=== PATIENT | female | born 1995 | race Caucasian/White ===

== ENCOUNTER 2023-11-29 14:41 | Emergency (ER) | payer SELFPAY ==
[~2023-11-29] VITALS: Ht 170.2 cm; Wt 73.0 kg
[2023-11-29 14:50] VITALS: O2SAT 98
[2023-11-29 16:39] LABS: BASOPHILS % 1.2 % (0.0-2.0); EOSINOPHILS % 1.9 % (0.0-5.0); HEMATOCRIT. 41.2 % (36.0-48.0); HEMOGLOBIN. 13.5 g/dL (12.0-16.0); LYMPHOCYTES % 39.5 % (20.0-50.0); MEAN CORPUSCULAR HEMOGLOBIN 27.6 pg (28.0-32.0); MEAN CORPUSCULAR HGB CONC 32.8 g/dL (31.0-37.0); MEAN CORPUSCULAR VOLUME 84.3 fL (81.0-99.0); MEAN PLATELET VOLUME 8.7 fl (7.4-10.4); NEUTROPHILS % 50.4 % (40.0-76.0); PLATELET 272 x1000/uL (130-400); RED BLOOD CELL COUNT 4.89 mill/uL (4.2-5.4); RED CELL DISTRIBUTION WIDTH 13.8 % (11.6-14.6); WHITE BLOOD COUNT 6.4 x1000/uL (4.5-11.0)
[2023-11-29 16:42] LABS: CHLORIDE 108 mEq/L (98-107); POTASSIUM 3.8 mEq/L (3.5-5.1); SODIUM 140 mEq/L (136-145)
[2023-11-29 16:43] LABS: CARBON DIOXIDE 28 mEq/L (21-32)
[2023-11-29 16:44] LABS: INR 0.9; PROTHROMBIN TIME 10.1 sec (9.6-11.0)
[2023-11-29 16:48] LABS: CREATININE 0.9 mg/dL (0.6-1.0); GLUCOSE 95 mg/dL (70-105); UREA NITROGEN BLOOD 9 mg/dL (9-23)
[2023-11-29 16:52] LABS: HCG SCREEN NEGATIVE
[2023-11-29 19:27] VITALS: BP 123/71; PULSE 88; RESP 20; TEMP 98.3
[2023-11-29] MEDS ORDERED: DEXT 5%/0.9% NACL 1,000 ML IV ONE (19:30)
[2023-11-29] MEDS ORDERED: IOHEXOL-300 100 ML BOTTLE ONE (21:57)
== END 2023-11-29 19:47 | disposition left against medical advice (07) ==
LOC: ER 14:41 → CANBEDREQ 20:08
DX: T18.198A Other foreign object in esophagus causing other injury, initial encounter (principal); X58.XXXA Exposure to other specified factors, initial encounter; Y93.89 Activity, other specified; Y92.89 Other specified places as the place of occurrence of the external cause; Y99.8 Other external cause status
CPT/HCPCS: 99285; 70491; 80048; 81025; 84703; 85025; 85610; 36415; 71260; 74160; 70490; Q9967